=== PATIENT | female | born 1995 | race Caucasian/White ===

== ENCOUNTER 2018-05-23 23:14 | Emergency (ER) | payer SELFPAY ==
[~2018-05-23] VITALS: Ht 160 cm; Wt 86.2 kg
[~2018-05-23 23:14] MED LIST: ALBU90OI61 INH; AMOX500 PO; AZIT250 PO; Antivert25 MG PO; Ativan1 MG PO; CODGUAEL PO; GUAI120S1 PO; MOMENI; ONDA4ODT MM; PENVK500 PO; PERM5TC TOP; PHENA200 PO; PRED10 PO; SERT25 PO; SULTRIDS PO; Sudogest30 MG PO; Verotin-Gr Cap1 EACH PO
[2018-05-24 00:27] LABS: BASOPHILS ABSOLUTE AUTO 0.03 K/mm3 (0.00-0.23); BASOPHILS PERCENT AUTO 0 % (0-2); EOSINOPHILS ABSOLUTE AUTO 0.09 K/mm3 (0.00-0.68); EOSINOPHILS PERCENT AUTO 1 % (0-6); Hematocrit 41.4 % (33.0-51.0); Hemoglobin 13.7 g/dL (11.5-16.0); IMMATURE GRAN ABSOLUTE AUTO 0.03 K/mm3 (0.00-0.10); IMMATURE GRAN PERCENT AUTO 0 % (0-1); LYMPHOCYTES ABSOLUTE AUTO 1.85 K/mm3 (0.84-5.20); LYMPHOCYTES PERCENT AUTO 20 % (21-46); MONOCYTES ABSOLUTE AUTO 0.59 K/mm3 (0.16-1.47); MONOCYTES PERCENT AUTO 6 % (4-13); Mean Corpuscular HGB Conc 33.1 g/dL (31.5-36.5); Mean Corpuscular Volume 91 fL (80-100); Mean Platelet Volume 11.6 fL (9.1-12.4); NEUTROPHILS ABSOLUTE AUTO 6.87 K/mm3 (1.96-9.15); NEUTROPHILS PERCENT AUTO 73 % (41-73); Platelet Count 249 K/mm3 (150-400); RDW Coefficient Variation 12.5 % (11.7-14.2); RDW Standard Deviation 40.9 fL (35.1-46.3); Red Blood Cell Count 4.57 M/mm3 (3.80-5.20); White Blood Cell Count 9.46 K/mm3 (4.00-11.30)
[2018-05-24 00:43] LABS: International Normalized Ratio 1.05; Prothrombin Time Results 11.1 Sec (9.7-11.5)
[2018-05-24 00:45] LABS: Alanine Aminotransfer (ALT/SGP 31 U/L (12-78); Albumin, Blood 3.9 g/dL (3.4-5.0); Albumin/Globulin Ratio 1.1 (0.8-1.8); Alk Phos 58 U/L (50-136); Anion Gap 6 mmol/L (6-16); Aspartate Aminotrans (AST/SGOT 24 U/L (12-37); Bilirubin, Total 0.3 mg/dL (0.1-1.0); Blood Urea Nitrogen 12 mg/dL (8-24); Bun/Creatinine Ratio 17.8 (12.0-20.0); CO2, Blood 28 mmol/L (21-32); Calcium, Blood 8.8 mg/dL (8.5-10.1); Chloride, Blood 109 mmol/L (98-108); Creatinine, Blood 0.68 mg/dL (0.40-1.00); Ethanol (Alcohol), Blood, Med <3 mg/dL; Globulin, Blood 3.6 g/dL (2.2-4.0); Glomerular Filtration Rate >60 (60-); Glucose, Blood 111 mg/dL (70-99); Potassium, Blood 3.3 mmol/L (3.5-5.5); Sodium, Blood 143 mmol/L (136-145); Total Protein, Blood 7.5 g/dL (6.4-8.2)
[2018-05-24 01:01] LABS: Source, Urine Clean Catch
[2018-05-24 01:05] LABS: Bilirubin, Urine Neg (Neg); Blood, Urine Neg (Neg); Glucose Qualitative, Urine Neg (Neg); Ketones, Urine Neg (Neg); Leukocyte Esterase, Urine Neg (Neg); Nitrite, Urine Neg (Neg); Protein, Urine Neg (Neg); Urobilinogen, Urine NORM (Normal)
[2018-05-24 01:06] LABS: Appearance, Urine Clear (Clear); Color, Urine Yellow (P-Yellow)
[2018-05-24 01:22] LABS: U Amphetamine Screen Not Detected; U Barbituate Screen Not Detected; U Benzodiazapine Screen Not Detected; U Buprenorphine Screen Not Detected; U Cannabinoids Screen Not Detected; U Cocaine Screen Not Detected; U Methadone Screen Not Detected; U Methamphetamine Screen DETECTED; U Opiates Screen Not Detected; U Oxycodone Screen Not Detected; U Phencyclidine Screen Not Detected; U Propoxyphene Screen Not Detected
== END 2018-05-24 02:23 | disposition home or self-care (01) ==
LOC: ER 23:14
PROVIDERS: Emergency Medicine
DX: S00.81XA Abrasion of other part of head, initial encounter (principal); S00.31XA Abrasion of nose, initial encounter; S30.811A Abrasion of abdominal wall, initial encounter; S80.212A Abrasion, left knee, initial encounter; S80.211A Abrasion, right knee, initial encounter; F15.129 Other stimulant abuse with intoxication, unspecified; V49.9XXA Car occupant (driver) (passenger) injured in unspecified traffic accident, initial encounter; F17.210 Nicotine dependence, cigarettes, uncomplicated
CPT/HCPCS: 36415; 70450; 71260; 72125; 74177; 80053; 81003; 81025; 83690; 85025; 85610; 85730; 86850; 86900; 86901; 99284-25; G0480; P9612; Q9967

== ENCOUNTER 2018-08-24 08:15 | Emergency (ER) | payer OTHER ==
[~2018-08-24] VITALS: Ht 160 cm; Wt 72.6 kg
[2018-08-24] MEDS ORDERED: CEPH500 PO (09:25)
[2018-08-24] MEDS ORDERED: Bactrim Ds Tab1 EACH PO (09:25)
== END 2018-08-24 09:35 | disposition home or self-care (01) ==
LOC: ER 08:15
DX: L02.511 Cutaneous abscess of right hand (principal); J02.9 Acute pharyngitis, unspecified; F15.10 Other stimulant abuse, uncomplicated; J45.909 Unspecified asthma, uncomplicated; F17.210 Nicotine dependence, cigarettes, uncomplicated
CPT/HCPCS: 10160; 87070; 87075; 87147; 87205; 96372-59; 99283-25; J1885

== ENCOUNTER 2018-09-11 07:00 | Emergency (ER) | payer OTHER ==
[~2018-09-11] VITALS: Ht 160 cm; Wt 68.0 kg
[~2018-09-11 07:00] MED LIST changes: +Bactrim Ds Tab1 EACH PO; +CEPH500 PO
[2018-09-11 08:42] LABS: BASOPHILS ABSOLUTE AUTO 0.03 K/mm3 (0.00-0.23); BASOPHILS PERCENT AUTO 0 % (0-2); EOSINOPHILS PERCENT AUTO 0 % (0-6); Hematocrit 34.8 % (33.0-51.0); Hemoglobin 11.7 g/dL (11.5-16.0); IMMATURE GRAN ABSOLUTE AUTO 0.07 K/mm3 (0.00-0.10); IMMATURE GRAN PERCENT AUTO 0 % (0-1); LYMPHOCYTES ABSOLUTE AUTO 1.77 K/mm3 (0.84-5.20); LYMPHOCYTES PERCENT AUTO 11 % (21-46); MONOCYTES ABSOLUTE AUTO 0.82 K/mm3 (0.16-1.47); MONOCYTES PERCENT AUTO 5 % (4-13); Mean Corpuscular HGB 28.9 pg (26.0-34.0); Mean Corpuscular HGB Conc 33.6 g/dL (31.5-36.5); Mean Corpuscular Volume 86 fL (80-100); NEUTROPHILS ABSOLUTE AUTO 13.35 K/mm3 (1.96-9.15); NEUTROPHILS PERCENT AUTO 83 % (41-73); Platelet Count 261 K/mm3 (150-400); RDW Standard Deviation 40.3 fL (35.1-46.3); Red Blood Cell Count 4.05 M/mm3 (3.80-5.20); White Blood Cell Count 16.04 K/mm3 (4.00-11.30)
[2018-09-11] MEDS ORDERED: Bactrim Ds Tab1 EACH PO (09:09)
[2018-09-11] MEDS ORDERED: CEPH500 PO (09:09)
[2018-09-11] MEDS ORDERED: IBUP600 PO (09:09)
[2018-09-11 09:12] LABS: Alanine Aminotransfer (ALT/SGP 15 U/L (12-78); Albumin, Blood 3.3 g/dL (3.4-5.0); Albumin/Globulin Ratio 0.7 (0.8-1.8); Alk Phos 54 U/L (50-136); Anion Gap 7 mmol/L (6-16); Aspartate Aminotrans (AST/SGOT 16 U/L (12-37); Bilirubin, Total 0.6 mg/dL (0.1-1.0); Blood Urea Nitrogen 8 mg/dL (8-24); Bun/Creatinine Ratio 12.9 (12.0-20.0); CO2, Blood 26 mmol/L (21-32); Calcium, Blood 8.7 mg/dL (8.5-10.1); Chloride, Blood 105 mmol/L (98-108); Creatinine, Blood 0.62 mg/dL (0.40-1.00); Globulin, Blood 4.6 g/dL (2.2-4.0); Glomerular Filtration Rate >60 (60-); Glucose, Blood 87 mg/dL (70-99); Potassium, Blood 3.7 mmol/L (3.5-5.5); Sodium, Blood 138 mmol/L (136-145); Total Protein, Blood 7.9 g/dL (6.4-8.2)
== END 2018-09-11 10:14 | disposition home or self-care (01) ==
LOC: ER 07:00
PROVIDERS: Physician Assistant
DX: L03.114 Cellulitis of left upper limb (principal); J45.909 Unspecified asthma, uncomplicated; F17.210 Nicotine dependence, cigarettes, uncomplicated
CPT/HCPCS: 36415; 76882; 80053; 83605; 85025; 87040; 96365; 99284-25; J0690

== ENCOUNTER 2018-10-24 10:46 | Emergency (ER) | payer OTHER ==
[~2018-10-24] VITALS: Ht 160 cm; Wt 72.6 kg
[~2018-10-24 10:46] MED LIST changes: +IBUP600 PO
== END 2018-10-24 11:54 | disposition home or self-care (01) ==
LOC: ER 10:46
DX: L02.414 Cutaneous abscess of left upper limb (principal); F17.210 Nicotine dependence, cigarettes, uncomplicated
CPT/HCPCS: 10060; 99283-25

== ENCOUNTER 2019-02-06 05:50 | Emergency (ER) | payer OTHER ==
[~2019-02-06] VITALS: Ht 157.5 cm; Wt 74.8 kg
[2019-02-06 06:43] LABS: Source, Urine Clean Catch
[2019-02-06 06:48] LABS: Appearance, Urine Clear (Clear); Bilirubin, Urine Neg (Neg); Blood, Urine 1+ (Neg); Color, Urine Yellow (P-Yellow); Glucose Qualitative, Urine Neg (Neg); Ketones, Urine Neg (Neg); Leukocyte Esterase, Urine Neg (Neg); Nitrite, Urine Pos (Neg); Protein, Urine 1+ (Neg); Specific Gravity, Urine 1.015 (1.003-1.022); Urobilinogen, Urine 1+ (Normal)
[2019-02-06] MEDS ORDERED: CEPH500 PO (06:48)
[2019-02-06] MEDS ORDERED: BACTRIM DS TAB1 EACH PO (06:48)
[2019-02-06 06:54] LABS: Bacteria Many /hpf; Red Blood Cells, Urine 0-2 /hpf (0-2); Squamous Epithelial Cells Not Seen /hpf (Few)
[2019-03-12] MEDS ORDERED: CLIN300 PO (13:59)
== END 2019-02-06 07:13 | disposition home or self-care (01) ==
LOC: ER 05:50
PROVIDERS: Emergency Medicine
DX: N39.0 Urinary tract infection, site not specified (principal); L03.114 Cellulitis of left upper limb; L03.113 Cellulitis of right upper limb; F11.10 Opioid abuse, uncomplicated; F15.10 Other stimulant abuse, uncomplicated; J45.909 Unspecified asthma, uncomplicated; F17.210 Nicotine dependence, cigarettes, uncomplicated
CPT/HCPCS: 81001; 87077; 87086; 87186; 99283; A9270-GY

== ENCOUNTER 2019-02-06 17:28 | Emergency (ER) | payer OTHER ==
[~2019-02-06] VITALS: Ht 157.5 cm; Wt 72.6 kg
[~2019-02-06 17:28] MED LIST changes: +BACTRIM DS TAB1 EACH PO
[2019-03-12] MEDS ORDERED: CLIN300 PO (13:59)
== END 2019-02-06 18:42 | disposition home or self-care (01) ==
LOC: ER 17:28
DX: S90.31XA Contusion of right foot, initial encounter (principal); J45.909 Unspecified asthma, uncomplicated; F17.210 Nicotine dependence, cigarettes, uncomplicated; X58.XXXA Exposure to other specified factors, initial encounter; Y93.02 Activity, running
CPT/HCPCS: 73610; 73630; 99283-25

== ENCOUNTER 2019-08-26 00:20 | Inpatient (IN) | payer OTHER ==
[~2019-08-26] VITALS: Ht 160 cm; Wt 68.0 kg
[~2019-08-26 00:20] MED LIST changes: +Bactrim 400-801 EACH PO; +CLIN300 PO
[2019-08-26 00:45] LABS: Source, Urine Clean Catch
[2019-08-26 00:47] LABS: Appearance, Urine Clear (Clear); Bilirubin, Urine Neg (Neg); Blood, Urine Neg (Neg); Color, Urine Yellow (P-Yellow); Glucose Qualitative, Urine Neg (Neg); Ketones, Urine Neg (Neg); Leukocyte Esterase, Urine 2+ (Neg); Nitrite, Urine Neg (Neg); Protein, Urine 2+ (Neg); Urobilinogen, Urine NORM (Normal)
[2019-08-26 00:53] LABS: Amorphous Light (0-Heavy); Bacteria Few /hpf; Mucus Light (0-Heavy); Red Blood Cells, Urine 0-2 /hpf (0-2); Squamous Epithelial Cells Few /hpf (Few)
[2019-08-26 00:54] LABS: Hyaline Casts 0-2 /lpf (0-2)
[2019-08-26 01:03] LABS: U Amphetamine Screen DETECTED; U Barbituate Screen Not Detected; U Benzodiazapine Screen Not Detected; U Buprenorphine Screen Not Detected; U Cannabinoids Screen Not Detected; U Cocaine Screen Not Detected; U Methadone Screen Not Detected; U Methamphetamine Screen DETECTED; U Opiates Screen DETECTED; U Oxycodone Screen Not Detected; U Phencyclidine Screen Not Detected; U Propoxyphene Screen Not Detected
[2019-08-26 01:30] LABS: BASOPHILS ABSOLUTE AUTO 0.02 K/mm3 (0.00-0.23); BASOPHILS PERCENT AUTO 0 % (0-2); EOSINOPHILS ABSOLUTE AUTO 0.02 K/mm3 (0.00-0.68); EOSINOPHILS PERCENT AUTO 0 % (0-6); Hematocrit 34.9 % (33.0-51.0); Hemoglobin 11.4 g/dL (11.5-16.0); IMMATURE GRAN ABSOLUTE AUTO 0.01 K/mm3 (0.00-0.10); IMMATURE GRAN PERCENT AUTO 0 % (0-1); LYMPHOCYTES ABSOLUTE AUTO 0.35 K/mm3 (0.84-5.20); LYMPHOCYTES PERCENT AUTO 6 % (21-46); MONOCYTES ABSOLUTE AUTO 0.02 K/mm3 (0.16-1.47); MONOCYTES PERCENT AUTO 0 % (4-13); Mean Corpuscular HGB 30.1 pg (26.0-34.0); Mean Corpuscular HGB Conc 32.7 g/dL (31.5-36.5); Mean Corpuscular Volume 92 fL (80-100); Mean Platelet Volume 9.3 fL (9.1-12.4); NEUTROPHILS ABSOLUTE AUTO 5.11 K/mm3 (1.96-9.15); NEUTROPHILS PERCENT AUTO 92 % (41-73); Platelet Count 166 K/mm3 (150-400); RDW Coefficient Variation 12.3 % (11.7-14.2); RDW Standard Deviation 42.1 fL (35.1-46.3); Red Blood Cell Count 3.79 M/mm3 (3.80-5.20); White Blood Cell Count 5.53 K/mm3 (4.00-11.30)
[2019-08-26 01:48] LABS: Alanine Aminotransfer (ALT/SGP 156 U/L (12-78); Albumin, Blood 3.1 g/dL (3.4-5.0); Albumin/Globulin Ratio 0.9 (0.8-1.8); Alk Phos 105 U/L (50-136); Anion Gap 6 mmol/L (6-16); Aspartate Aminotrans (AST/SGOT 182 U/L (12-37); BAND PERCENT MAN 18 % (0-8); BASOPHILS PERCENT MAN 0 % (0-2); Bilirubin, Total 0.8 mg/dL (0.1-1.0); Blood Urea Nitrogen 17 mg/dL (8-24); Bun/Creatinine Ratio 14.7 (12.0-20.0); CO2, Blood 28 mmol/L (21-32); CPK Creatine Kinase 450 U/L (26-193); Calcium, Blood 7.9 mg/dL (8.5-10.1); Chloride, Blood 106 mmol/L (98-108); Creatinine, Blood 1.16 mg/dL (0.40-1.00); EOSINOPHILS PERCENT MAN 0 % (0-6); Globulin, Blood 3.4 g/dL (2.2-4.0); Glomerular Filtration Rate >60 (60-); Glucose, Blood 119 mg/dL (70-99); LYMPHOCYTES ABSOLUTE MAN 0.44 K/mm3 (0.84-5.20); LYMPHOCYTES PERCENT MAN 8 % (21-46); MONOCYTES PERCENT MAN 0 % (4-13); NEUTROPHILS ABSOLUTE MAN 5.08 K/mm3 (1.96-9.15); Potassium, Blood 3.4 mmol/L (3.5-5.5); SEG NEUTROPHILS PERCENT MAN 74 % (41-73); Sodium, Blood 140 mmol/L (136-145); TOTAL CELLS COUNTED 100; Total Protein, Blood 6.5 g/dL (6.4-8.2)
[2019-08-26 02:04] LABS: Creatine Kinase MB 4.6 ng/mL (0.0-3.6)
--- NOTE | 2019-08-26 07:19 | NUR ---
patient admitted last night for drug overdose. Upon coming to the unit patient was difficult to arouse but when aroused the patient was able to follow instructions. Through the rest of the shift the patient became moderately agitated and was given Ativan to calm her down. The patient initially came in hyperthermic with a temperature of 104 Fahrenheit in the emergency department, but by the end of the shift the patient's temperature was around 100 Fahrenheit. The patient seems to be improving but will need close monitoring for the oncoming hours.
--- NOTE | 2019-08-26 17:38 | NUR ---
SHIFT SUMMARY PT PT RESTING IN BED, RESPONDING TO VERBAL AND TACTILE STIMULI; QUICKLY FALL BACK TO SLEEP. PT ORIENTED TO SELF AND SURROUNDING. NO S/Sx OF DISTRESS NOTED; DENIES PAIN, NAUSEA AND SOB WHEN ASKED. PT TURNS SELF IN BED AND ASSIST WITH REPOSITIONING. PT WOKE UP THIS EVEING ASKING FOR WATER AND QUICKLY FELL BACK ASLEEP; PT PROVIDED WITH MOUTH SWABS. VSS. NO OTHER ACUTE CHANGES NOTED DURING SHIFT.
[2019-08-27 03:43] LABS: BASOPHILS ABSOLUTE AUTO 0.06 K/mm3 (0.00-0.23); BASOPHILS PERCENT AUTO 0 % (0-2); Hematocrit 33.7 % (33.0-51.0); Hemoglobin 10.7 g/dL (11.5-16.0); LYMPHOCYTES PERCENT AUTO 9 % (21-46); MONOCYTES ABSOLUTE AUTO 1.33 K/mm3 (0.16-1.47); MONOCYTES PERCENT AUTO 5 % (4-13); Mean Corpuscular HGB 29.6 pg (26.0-34.0); Mean Corpuscular HGB Conc 31.8 g/dL (31.5-36.5); Mean Corpuscular Volume 93 fL (80-100); Mean Platelet Volume 10.8 fL (9.1-12.4); Platelet Count 154 K/mm3 (150-400); RDW Coefficient Variation 12.8 % (11.7-14.2); RDW Standard Deviation 43.8 fL (35.1-46.3); Red Blood Cell Count 3.62 M/mm3 (3.80-5.20)
[2019-08-27 03:46] LABS: EOSINOPHILS ABSOLUTE AUTO 0.03 K/mm3 (0.00-0.68); EOSINOPHILS PERCENT AUTO 0 % (0-6); IMMATURE GRAN ABSOLUTE AUTO 0.38 K/mm3 (0.00-0.10); IMMATURE GRAN PERCENT AUTO 2 % (0-1); NEUTROPHILS PERCENT AUTO 84 % (41-73)
[2019-08-27 04:00] LABS: Anion Gap 5 mmol/L (6-16); Blood Urea Nitrogen 18 mg/dL (8-24); Bun/Creatinine Ratio 23.9 (12.0-20.0); CO2, Blood 27 mmol/L (21-32); Calcium, Blood 7.5 mg/dL (8.5-10.1); Chloride, Blood 106 mmol/L (98-108); Creatinine, Blood 0.75 mg/dL (0.40-1.00); Glomerular Filtration Rate >60 (60-); Glucose, Blood 91 mg/dL (70-99); Potassium, Blood 3.7 mmol/L (3.5-5.5); Sodium, Blood 138 mmol/L (136-145)
[2019-08-27 05:04] LABS: BAND PERCENT MAN 12 % (0-8); BASOPHILS PERCENT MAN 0 % (0-2); EOSINOPHILS PERCENT MAN 0 % (0-6); LYMPHOCYTES ABSOLUTE MAN 0.98 K/mm3 (0.84-5.20); LYMPHOCYTES PERCENT MAN 4 % (21-46); MONOCYTES ABSOLUTE MAN 0.98 K/mm3 (0.16-1.47); MONOCYTES PERCENT MAN 4 % (4-13); NEUTROPHILS ABSOLUTE MAN 22.72 K/mm3 (1.96-9.15); SEG NEUTROPHILS PERCENT MAN 80 % (41-73); TOTAL CELLS COUNTED 100
--- NOTE | 2019-08-27 06:03 | NUR ---
patient initially committed for drug overdose with hypothermia of 104 Fahrenheit. Overnight patient will remain normothermic and more alert. Patient complains of some tingling on her hands which she claims it happens often therefore we will follow up in the morning, provider was notified . No other acute events overnight patient denies chest pain, chest pressure, shortness of breath.
--- NOTE | 2019-08-27 13:00 | NUR ---
TRANSFER NOTE PT MORE ALERT TODAY THEN PREVIOUS DAY; ORIENTED TO SELF, SURROUNDING AND EVENT. PT STATES THAT SHE "SMOKED METH" AND RECENTLY "SHOT UP HEROINE" PRIOR TO BEING ADMITTED. PT REPORTS BACK PAIN THIS AM, MEDICATED x1 WITH TYLENOL. PT DENIES SOB, NAUSEA AND DIZZINESS DURING SHIFT. PT STARTED ON IV ANTIBIOTICS. TRANSITIONED TO REGULAR DIET. VSS. NO OTHER ACUTE CHANGES NOTED. REPORT GIVEN TO RN ASSUMING CARE OF PT PT TRANSFERED AT 1255.
--- NOTE | 2019-08-27 13:27 | NUR ---
ASSUMED CARE OF PATIENT UPON HER ARRIVAL FROM PCU AT 1304. QUINONEZ CATHETER HAD LEAKED; PT GIVEN BATH AND COMPLETE LINEN CHANGE. C/O GENERALIZED PAIN, COULD NOT SPECIFY LOCATION OR INTENSITY. IS ALERT, EMOTIONAL, ASKING "WHAT'S HAPPENED TO ME?" DECLINED EDUCATION ABOUT DRUG TREATMENT. LUNGS CLEAR, HRR, NO EDEMA NOTED. SEVERAL SMALL SCATTERED PUNCTURE-TYPE WOUNDS NOTED ON BILATERAL UPPER EXTREMITIES NEAR ELBOWS AND WRISTS AND SEVERAL SMALL PALE BRUISES ON BLE. C/O HANDS BEING "SWOLLEN AND NUMB." HAD LUNCH IN PCU, IS RESTING NOW.
--- NOTE | 2019-08-27 18:36 | NUR ---
SHIFT SUMMARY: NO EVENTS SINCE TRANSFER. PATIENT SLEPT ALL AFTERNOON. IS A&O X 3, EMOTIONAL AT TIMES. GOOD APPETITE.
--- NOTE | 2019-08-27 23:57 | NUR ---
QUINONEZ CATH D/C'D AT 2009 DUE TO PT UP AMB AROUND ROOM W/CGA. 10CC REMOVED FROM F/C BALLOON. CATH D/C'D INTACT. PT ELIZA WELL. VOIDING IN BSC X 2 SINCE CATH REMOVED.
--- NOTE | 2019-08-28 04:27 | NUR ---
SHIFT SUMMARY: VSS. AFEB. AAOX3. 02 97% ON RA. IMPULSIVE AND UNSTEADY ON HER FEET. BED ALARM ON. PT IRRITABLE, SWEARING AND EXPRESSING ANGER SURROUNDING HER SITUATION. MED X 1 WITH TYLENOL FOR GENERAL BODY ACHE. VOIDING WITHOUT PROBLEMS. 1 SOFT STOOL. 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 WILL COMMUNICATE THIS TO DAY SHIFT. CONT W/+2 EDEMA AND N/T IN B HANDS. +1 EDEMA IN B FEET. IV ABT INFUSED ORDERED. NO ACUTE CHANGES.
[2019-08-28 04:51] LABS: BASOPHILS ABSOLUTE AUTO 0.04 K/mm3 (0.00-0.23); BASOPHILS PERCENT AUTO 0 % (0-2); EOSINOPHILS ABSOLUTE AUTO 0.16 K/mm3 (0.00-0.68); EOSINOPHILS PERCENT AUTO 1 % (0-6); Hematocrit 33.6 % (33.0-51.0); Hemoglobin 10.7 g/dL (11.5-16.0); IMMATURE GRAN ABSOLUTE AUTO 0.32 K/mm3 (0.00-0.10); IMMATURE GRAN PERCENT AUTO 2 % (0-1); LYMPHOCYTES ABSOLUTE AUTO 2.79 K/mm3 (0.84-5.20); LYMPHOCYTES PERCENT AUTO 14 % (21-46); MONOCYTES ABSOLUTE AUTO 0.99 K/mm3 (0.16-1.47); MONOCYTES PERCENT AUTO 5 % (4-13); Mean Corpuscular HGB 29.7 pg (26.0-34.0); Mean Corpuscular HGB Conc 31.8 g/dL (31.5-36.5); Mean Corpuscular Volume 93 fL (80-100); Mean Platelet Volume 11.1 fL (9.1-12.4); NEUTROPHILS PERCENT AUTO 78 % (41-73); Platelet Count 173 K/mm3 (150-400); RDW Coefficient Variation 12.7 % (11.7-14.2); RDW Standard Deviation 43.8 fL (35.1-46.3)
[2019-08-28 05:15] LABS: Alanine Aminotransfer (ALT/SGP 109 U/L (12-78); Albumin, Blood 2.3 g/dL (3.4-5.0); Albumin/Globulin Ratio 0.6 (0.8-1.8); Alk Phos 67 U/L (50-136); Anion Gap 6 mmol/L (6-16); Aspartate Aminotrans (AST/SGOT 63 U/L (12-37); Bilirubin, Total 0.3 mg/dL (0.1-1.0); Blood Urea Nitrogen 13 mg/dL (8-24); Bun/Creatinine Ratio 16.4 (12.0-20.0); CO2, Blood 26 mmol/L (21-32); Calcium, Blood 7.7 mg/dL (8.5-10.1); Chloride, Blood 109 mmol/L (98-108); Creatinine, Blood 0.79 mg/dL (0.40-1.00); Globulin, Blood 3.8 g/dL (2.2-4.0); Glomerular Filtration Rate >60 (60-); Glucose, Blood 86 mg/dL (70-99); Potassium, Blood 3.6 mmol/L (3.5-5.5); Sodium, Blood 141 mmol/L (136-145); Total Protein, Blood 6.1 g/dL (6.4-8.2)
--- NOTE | 2019-08-28 16:44 | NUR ---
SHIFT SUMMARY PT C/O PAIN ONCE THIS SHIFT SO FAR. TREATED PER EMAR. PT UP & SHOWERED THIS SHIFT. STABILITY IMPROVING. NICOTINE PATCH ORDERED FOR DR. VIDAL & APPLIED THIS AFTERNOON. PT IN BED, SLEEPING ON AND OFF T/O SHIFT. TOLERATING PO INTAKE WELL. VSS. NO OTHER ACUTE CHANGES IN ASSESSMENT AT THIS TIME. URINE PENDING & AFTERNOON LABS PENDING.
--- NOTE | 2019-08-29 04:15 | NUR ---
SHIFT SUMMARY PT HAS RESTED MOST OF THE NIGHT. PT COMPLAINS OF GENERAL BODY ACHES, MEDICATED WITH TYLENOL WITH AFFECT. IV ABX CONTINUED ORDERED. NO ACUTE CHANGES IN PT ASSESSMENT. BED IN LOWEST POSITION, CALL LIGHT WITHIN REACH.
[2019-08-29 05:29] LABS: BASOPHILS ABSOLUTE AUTO 0.04 K/mm3 (0.00-0.23); BASOPHILS PERCENT AUTO 0 % (0-2); EOSINOPHILS ABSOLUTE AUTO 0.14 K/mm3 (0.00-0.68); EOSINOPHILS PERCENT AUTO 1 % (0-6); Hematocrit 34.1 % (33.0-51.0); IMMATURE GRAN ABSOLUTE AUTO 0.05 K/mm3 (0.00-0.10); IMMATURE GRAN PERCENT AUTO 0 % (0-1); LYMPHOCYTES ABSOLUTE AUTO 3.02 K/mm3 (0.84-5.20); LYMPHOCYTES PERCENT AUTO 26 % (21-46); MONOCYTES ABSOLUTE AUTO 0.55 K/mm3 (0.16-1.47); MONOCYTES PERCENT AUTO 5 % (4-13); Mean Corpuscular HGB 29.7 pg (26.0-34.0); Mean Corpuscular HGB Conc 32.3 g/dL (31.5-36.5); Mean Corpuscular Volume 92 fL (80-100); Mean Platelet Volume 11.1 fL (9.1-12.4); NEUTROPHILS ABSOLUTE AUTO 7.95 K/mm3 (1.96-9.15); NEUTROPHILS PERCENT AUTO 68 % (41-73); Platelet Count 188 K/mm3 (150-400); RDW Coefficient Variation 12.5 % (11.7-14.2); RDW Standard Deviation 42.4 fL (35.1-46.3); White Blood Cell Count 11.75 K/mm3 (4.00-11.30)
--- NOTE | 2019-08-29 07:00 | NUR ---
ASSUMED CARE: PT RESTING QUIETLY AT THIS TIME. NO ACUTE NEEDS OR CONCERNS NOTED.
[2019-08-29 10:52] LABS: Candida species (DNA Probe) Negative (NEGATIVE); G. vaginalis (DNA Probe) Negative (NEGATIVE); T. vaginalis (DNA Probe) Positive (NEGATIVE)
--- NOTE | 2019-08-29 13:10 | NUR ---
PT REMOVED OWN IV. RIDE SET UP FOR TAXI TO TAKE HER TO THE [facility] PER HER REQUEST. PO ABX GIVEN PRIOR TO DC WITH INSTRUCTIONS TO NOT DRINK ALCOHOL WITH MEDICATION OR NAUSEA AND VOMITING MAY OCCUR. PT DENIED FURTHER NEEDS OR CONCERNS. AMBULATORY UPON DC
[2019-08-29 13:47] LABS: FINAL INTERPRETATION Negative (.); HIV 1 AB Negative (Negative); HIV 2 AB Negative (Negative)
[2019-08-30 14:11] LABS: CHLAMYDIA BY NAA Positive (Negative); GONOCOCCUS BY NAA Negative (Negative); TRICH VAG BY NAA Positive (Negative)
== END 2019-08-29 12:55 | disposition home or self-care (01) | DRG 896 ==
LOC: ER 00:20 → PCU 00:21 → MEDS 08-27 12:58
PROVIDERS: Emergency Medicine; Internal Medicine; Student in an Organized Health Care Education/Training Program; ADMIT Internal Medicine
DX: F15.929 Other stimulant use, unspecified with intoxication, unspecified (principal); G92 Toxic encephalopathy; R65.10 Systemic inflammatory response syndrome (SIRS) of non-infectious origin without acute organ dysfunction; M62.82 Rhabdomyolysis; E87.2 Acidosis; E87.6 Hypokalemia; J45.909 Unspecified asthma, uncomplicated; A59.01 Trichomonal vulvovaginitis
CPT/HCPCS: 36415; 51702; 71045; 80048; 80053; 81001; 81025; 82550; 82553; 82947; 83605; 83690; 85025; 86701; 86702; 87040; 87077; 87086; 87186; 87480; 87491; 87510; 87591; 87660; 87661; 93005; 93010; 94762; 96361; 96361-59; 96365-59; 96375; 96375-59; 96376; 99285-25; A9270; A9270-GY; G0378; J2060; J2405; J2543; J3370; J3480; J7030; J7050; J7120

== ENCOUNTER 2019-12-30 23:23 | Emergency (ER) | payer OTHER ==
[~2019-12-30] VITALS: Ht 160 cm; Wt 70.3 kg
== END 2019-12-31 02:13 | disposition home or self-care (01) ==
LOC: ER 23:23
DX: T40.1X1A Poisoning by heroin, accidental (unintentional), initial encounter (principal); T43.621A Poisoning by amphetamines, accidental (unintentional), initial encounter; R40.20 Unspecified coma; R06.02 Shortness of breath; F19.10 Other psychoactive substance abuse, uncomplicated
CPT/HCPCS: 99285

== ENCOUNTER 2020-01-28 05:10 | Emergency (ER) | payer OTHER ==
[~2020-01-28] VITALS: Ht 160 cm; Wt 68.0 kg
[2020-01-28] MEDS ORDERED: CEPH500 PO (05:37)
[2020-01-28] MEDS ORDERED: Bactrim Ds Tab1 EACH PO (05:38)
== END 2020-01-28 05:56 | disposition home or self-care (01) ==
LOC: ER 05:10
DX: L02.413 Cutaneous abscess of right upper limb (principal); F19.10 Other psychoactive substance abuse, uncomplicated; F17.200 Nicotine dependence, unspecified, uncomplicated
CPT/HCPCS: 10060; 99283-25

== ENCOUNTER → 2021-04-25 | Outpatient (CLI) | payer OTHER ==
[2021-04-26 10:12] LABS: Candida species (DNA Probe) Negative (NEGATIVE); G. vaginalis (DNA Probe) Positive (NEGATIVE); T. vaginalis (DNA Probe) Positive (NEGATIVE)
[2021-04-27 16:11] LABS: HPV 16 Positive (Negative); HPV 18 Negative (Negative); HPV OTHER HR TYPES Positive (Negative)
[2021-04-28 12:09] LABS: CHLAMYDIA BY NAA Negative (Negative); GONOCOCCUS BY NAA Negative (Negative)
[2021-04-28 12:41] LABS: TRICH VAG BY NAA Positive (Negative)
== END | disposition home or self-care (01) ==
LOC: LAB SHORT 19:01
PROVIDERS: Family Medicine
DX: Z11.3 Encounter for screening for infections with a predominantly sexual mode of transmission (principal)
CPT/HCPCS: 87480; 87491; 87510; 87591; 87624; 87625; 87660; 87661; G0123

== ENCOUNTER → 2024-06-12 | Outpatient (CLI) | payer OTHER ==
[~2024-06-12] MED LIST changes: +Carafate1 GM/10 ML PO; +Omeprazole20 M1 PO
== END ==
LOC: LAB 17:23 → LAB SHORT 17:23
DX: R30.0 Dysuria (principal); R33.9 Retention of urine, unspecified
CPT/HCPCS: 87077; 87086; 87186